=== PATIENT | female | born 1950 | race Caucasian/White ===

== ENCOUNTER 2021-02-03 09:18 | Emergency (ER) | payer MEDICARE, SELFPAY ==
[2021-02-03 09:31] VITALS: BP 145/77; PULSE 97; RESP 16; TEMP 37.4; O2SAT 98
--- NOTE | 2021-02-03 10:00 | ED.FEMALEGU ---
HPI - Female Genitourinary General Chief complaint: Urogenital-Female Stated complaint: UTI Time Seen by Provider: 02/03/21 10:00 Source: patient and RN notes reviewed Mode of arrival: ambulatory Limitations: no limitations History of Present Illness HPI Narrative: 70-year-old female presents with concern for dysuria, frequency, general malaise, nausea. Reports history of urinary tract infections. Reports she took an Azo yesterday. Reports she has been increasing her water intake. She denies abdominal pain, back pain, fever. MD elicited complaint: dysuria Related Data Home Medications Medication Instructions Recorded Confirmed estradiol 0.025 patch TRANSDERMAL WEEKLY 02/03/21 02/03/21 ibandronate 150 mg PO 02/03/21 Allergies Allergy/AdvReac Type Severity Reaction Status Date / Time No Known Allergies Allergy Unverified 09/26/16 17:31 Review of Systems Review of Systems: CONSTITUTIONAL: Reports malaise. Denies chills, sweats, or fever. CARDIOVASCULAR: Denies chest pain, palpitations, or edema. RESPIRATORY: Denies cough or dyspnea. GASTROINTESTINAL: Denies abdominal pain, vomiting, diarrhea. Reports onset GENITOURINARY: Reports dysuria, frequency. Denies flank pain or hematuria. SKIN: Denies rash or itching. MUSCULOSKELETAL: Denies back pain or myalgia. All systems reviewed & are unremarkable except as noted in HPI and below PMFSH Comments At time of signature, agree with nursing past medical, surgical, social and family history. There is no relevant family history pertinent to the presenting complaint Exam Narrative: GENERAL: Well-appearing, well-nourished, and in no acute distress. HEAD: Normocephalic. EYES: PERRLA, conjunctivae clear. NECK: Supple. No lymphadenopathy CHEST: Clear to auscultation. No respiratory distress. HEART: Regular rate and rhythm. ABDOMEN: Soft, nontender upon palpation, nondistended, normal active bowel sounds, no palpable or pulsatile masses, no guarding. No CVA tenderness SKIN: Warm, dry, no rash. NEURO: Alert and oriented x3. PSYCH: Normal mood and affect Course Course Emergency Course: Patient is aware of diagnosis, understands and agrees to treatment plan. Anticipatory guidance given. Patient agrees to follow-up as directed and is aware of reasons to seek care at the emergency department. Portions of this record may have been created with voice recognition software Vital Signs Vital signs: Vital Signs Temperature 99.4 F 02/03/21 09:31 Pulse Rate 97 02/03/21 09:31 Respiratory Rate 16 02/03/21 09:31 Blood Pressure 145/77 H 02/03/21 09:31 Pulse Oximetry 98 02/03/21 09:31 Temperature 99.4 F 02/03/21 09:31 Pulse Rate 97 02/03/21 09:31 Respiratory Rate 16 02/03/21 09:31 Blood Pressure 145/77 H 02/03/21 09:31 Pulse Oximetry 98 02/03/21 09:31 Reviewed. MDM - Female Genitourinary MDM Narrative Medical decision making narrative: Exam findings and UA show no acute concerns or changes; patient is non-toxic appearing and is in no distress. Patient is appropriate for outpatient treatment and follow-up. Differential Diagnosis Differential diagnosis: Likely urinary tract infection, vaginitis and cystitis Lab Data Labs: Urine Glucose Negative Reference Range: Negative Urine Bilirubin Negative Reference Range: Negative Urine Ketone Negative Reference Range: Negative Urine Specific [place] 1.025 Reference Range:1.001-1.035 Urine Blood Trace Reference Range: Negative * * Urine pH 5.5 Reference Range
== END 2021-02-03 10:15 | disposition home or self-care (01) ==
PROVIDERS: Emergency Provider Nurse Practitioner; PCP Hospitalist
DX: R30.0 Dysuria (principal); R35.0 Frequency of micturition; R11.0 Nausea; R53.81 Other malaise
CPT/HCPCS: 81003; 87086; 99203; G0463

== ENCOUNTER 2021-06-03 13:32 | Emergency (ER) | payer MEDICARE, SELFPAY ==
[2021-06-03 13:38] VITALS: BP 154/78; PULSE 95; RESP 14; TEMP 37.2; O2SAT 99
--- NOTE | 2021-06-03 13:47 | ED.FEMALEGU ---
HPI - Female Genitourinary General Chief complaint: Urogenital-Female Stated complaint: Urinary Problem Time Seen by Provider: 06/03/21 13:47 Source: patient and RN notes reviewed Mode of arrival: ambulatory Limitations: no limitations History of Present Illness HPI Narrative: 71-year-old female presented for complaint of burning with urination, frequency, urgency, onset yesterday. Denies hematuria, nausea, vomiting, CVA tenderness, fever or chills. History of approximately 4 UTIs over the last year. She took Azo today. History of IBS-C. Related Data Allergies Allergy/AdvReac Type Severity Reaction Status Date / Time No Known Allergies Allergy Verified 06/03/21 13:47 Review of Systems Review of Systems: CONSTITUTIONAL: Denies body aches, fever, chills, or sweats. CARDIOVASCULAR: Denies chest pain, palpitations, or edema. RESPIRATORY: Denies cough or dyspnea. GASTROINTESTINAL: Denies abdominal pain, nausea, vomiting, or diarrhea. GENITOURINARY: Reports dysuria, frequency, urgency, denies Hematuria, flank pain SKIN: Denies rash, itching, or wounds. MUSCULOSKELETAL: Denies back pain or myalgia. PMFSH Comments At time of signature, I have reviewed and agree with nursing past medical, surgical, social and family history unless otherwise noted. Please see nursing chart for further information. There is no relevant family history pertinent to the presenting complaint Exam Narrative: GENERAL: Well-appearing HEAD: Normocephalic EYES: EOMI. . ENT: Mucous membranes pink and moist. NECK: Normal AROM. Supple. CHEST: No respiratory distress. Clear to auscultation. HEART: Regular rate and rhythm. ABDOMEN: Soft, nontender, nondistended, normal active bowel sounds. No CVA tenderness MUSCULOSKELETAL: No bony tenderness. SKIN: Warm, dry, no rash. NEURO: No focal deficits. Alert and oriented x3. Gait steady. PSYCH: Normal affect. No signs of depression or anxiety. Course Course Emergency Course: Patient is aware of diagnosis, understands and agrees to treatment plan. Anticipatory guidance given. Patient agrees to follow-up as directed and is aware of reasons to seek care at the emergency department. Portions of this record may have been created with voice recognition software Level of Care: Express Care Visit Vital Signs Vital signs: Vital Signs Temperature 99 F 06/03/21 13:38 Pulse Rate 95 06/03/21 13:38 Respiratory Rate 14 06/03/21 13:38 Blood Pressure 154/78 H 06/03/21 13:38 Pulse Oximetry 99 06/03/21 13:38 Temperature 99 F 06/03/21 13:48 Pulse Rate 95 06/03/21 13:48 Respiratory Rate 14 06/03/21 13:48 Blood Pressure 154/78 H 06/03/21 13:48 Pulse Oximetry 99 06/03/21 13:48 Reviewed MDM - Female Genitourinary MDM Narrative Medical decision making narrative: Exam findings and UA show uti, no acute concerns or changes; patient is non-toxic appearing and is in no distress. Appropriate for treatment of UTI as outpt. She intends to establish with urologist. Differential Diagnosis Differential diagnosis: Likely urinary tract infection and cystitis Lab Data Labs: Urine Glucose Negative Reference Range: Negative Urine Bilirubin Negative Reference Range: Negative Urine Ketone Negative Reference Range: Negative Urine Specific [place] 1.010 Reference Range:1.001-1.035 Urine Blood Trace Reference Range: Negative * * Urine pH 6.0 Reference Range: 5.0-9.0 Urine Protein Negative
[2021-06-03 13:48] VITALS: BP 154/78; PULSE 95; RESP 14; TEMP 37.2; O2SAT 99
== END 2021-06-03 14:07 | disposition home or self-care (01) ==
PROVIDERS: Emergency Provider Nurse Practitioner Family; PCP Hospitalist
DX: N39.0 Urinary tract infection, site not specified (principal)
CPT/HCPCS: 81003; 87086; 99213; G0463

== ENCOUNTER 2021-09-17 10:45 | Emergency (ER) | payer MEDICARE, SELFPAY ==
[2021-09-17 11:02] VITALS: BP 163/85; PULSE 94; RESP 16; TEMP 36.7; O2SAT 100
--- NOTE | 2021-09-17 11:07 | ED.GENADULT ---
HPI - General Adult General Chief complaint: Urogenital-Female Stated complaint: poss uti Source: patient Mode of arrival: ambulatory Limitations: no limitations History of Present Illness HPI narrative: Patient presents for evaluation of urinary symptoms. Symptom onset this morning. She reports urinary urgency, frequency and dysuria. She denies any fever, chills, nausea, vomiting, abdominal pain, back pain and hematuria. She has a history of recurrent urinary tract infections. She completed a course of Macrobid earlier this month. She is under the care of urology. She had a renal and bladder ultrasound, both of which were negative. She states she has further testing planned with them. She has some Azo available at home. Surgical history positive for hysterectomy. No additional complaints or concerns. Related Data Allergies Allergy/AdvReac Type Severity Reaction Status Date / Time No Known Allergies Allergy Verified 09/17/21 11:01 Review of Systems Review of Systems: CONSTITUTIONAL: Denies fever, chills, or sweats. EYES: Denies visual changes, redness, or discharge. ENT: Denies rhinorrhea, congestion, sore throat, or otalgia. CARDIOVASCULAR: Denies chest pain, palpitations, or edema. RESPIRATORY: Denies cough or dyspnea. GASTROINTESTINAL: Denies abdominal pain, nausea, vomiting, or diarrhea. GENITOURINARY:Reports urinary frequency, urgency and dysuria SKIN: Denies rash or itching. MUSCULOSKELETAL: Denies back pain, joint pain, or myalgia. NEUROLOGIC: Denies headache, numbness, dizziness, or weakness. PSYCHIATRIC: Denies anxiety or depression. [facility] Past Medical History Medical History UTI (urinary tract infection) Surgical History Surgical History History of hysterectomy Family History Family History Mother Family history non-contributory Social History Social History Smoking status: Never smoker Substance use: never Living arrangements: with family Gender identity (if verbalized by the patient): Female Sexual Orientation (if Verbalized by the Patient): Straight or Heterosexual Spiritual care concerns: No Exam Narrative: GENERAL: Well-appearing, well-nourished, and in no acute distress. HEAD: Normocephalic, atraumatic. EYES: PERRLA and EOMI. ENT: Nares clear, no rhinorrhea or epistaxis. Mucous membranes moist. Oropharynx without tonsillar hypertrophy exudate or other lesions. Bilateral TMs pearly lei nonbulging NECK: Supple. No adenopathy or masses. No carotid bruits or JVD CHEST: Clear to auscultation. No respiratory distress. No wheezes rales or rhonchi HEART: Regular rate and rhythm. No murmur heard. Normal peripheral pulses. ABDOMEN: Soft, nontender, nondistended, normal active bowel sounds. EXTREMITIES: Normal range of motion. No edema. BACK: No CVA tenderness SKIN: Warm, dry, no rash. NEURO: No focal deficits. Alert and oriented x3. PSYCH: Normal mood and affect. Course Course Emergency Course: This is a 71 yr old female here today with urinary symptoms. Urine positive for leukocytes. Will tx with keflex. Send urine for culture. Follow up outpatient for further evaluation and treatment and return for worsening symptoms. Pt in agreement with plan of care. Level of Care: Express Care Visit Vital Signs Vital signs: Vital Signs Temperature 36.7 C 09/17/21 11:02 Pulse Rate 94 09/17/21 11:02 Respiratory Rate 16 09/17/21 11:02 Blood Pressure 163/85 H 09/17/21 11:02 Pulse Oximetry 100 09/17/21 11:02 Oxygen Delivery Room Air 09/17/21 11:02 Temperature 36.7 C 09/17/21 11:02 Pulse Rate 94 09/17/21 11:02 Respiratory Rate 16 09/17/21 11:02 Blood Pressure 163/85 H 09/17/21 11:02 Pulse Oximetry 100
== END 2021-09-17 11:15 | disposition home or self-care (01) ==
PROVIDERS: Emergency Provider Nurse Practitioner; PCP Hospitalist
DX: N39.0 Urinary tract infection, site not specified (principal)
CPT/HCPCS: 81003; 87086; 87088; 99213; G0463